=== PATIENT | female | born 1990 | race African-American/Black ===

== ENCOUNTER 2018-02-19 04:01 | Observation (INO) | payer MEDICARE, MEDICAID ==
[~2018-02-19] VITALS: Ht 149.9 cm; Wt 63.5 kg
[2018-02-19] MEDS ORDERED: PNV1TABL50 PO (05:26)
== END 2018-02-19 04:15 | disposition home or self-care (01) ==
LOC: L&D 04:01
PROVIDERS: ADMIT Specialist; ATTEND Specialist
DX: O42.913 Preterm premature rupture of membranes, unspecified as to length of time between rupture and onset of labor, third trimester (principal); O62.9 Abnormality of forces of labor, unspecified; Z3A.38 38 weeks gestation of pregnancy
CPT/HCPCS: 99281; G0378; J7120